=== PATIENT | female | born 2000 | race Two or more races ===

== ENCOUNTER 2019-09-19 18:43 | Emergency (ER) | payer OTHER ==
[2019-09-19 19:17] LABS: Influenza B Molecular POSITIVE (Negative)
[2019-09-19] MEDS ORDERED: Oseltamivir CAP* 75 MG CAP PO ONE (21:52)
[2019-09-19] MEDS ORDERED: Benzonatate CAP* 100 MG PO ONE (21:52)
[2019-09-19 21:54] VITALS: BP 120/76
--- NOTE | 2019-09-19 21:54 | ED ---
Influenza-Like Illness - HPI Summary HPI Summary: Patient complains of fever to 104, dry cough, body aches, runny nose 3 days. Denies FERRARO, sore throat, ear pain, neck stiffness, CP, SOB, N/3/D, abdominal pain , change in urine, change in BM. Medical history is asthma. - History of Current Complaint Chief Complaint: EDFluSymptoms Time Seen by Provider: 09/19/19 21:46 Hx Obtained From: Patient Onset/Duration: Gradual Onset, Lasting Days Severity: Moderate Associated Signs & Symptoms: Fever, Myalgia, Cough, Nasal Congestion - Allergy/Home Medications Allergies/Adverse Reactions: Allergies Allergy/AdvReac Type Severity Reaction Status Date / Time No Known Allergies Allergy Verified 09/19/19 21:59 PMH/Surg Hx/FS Hx/Imm Hx Endocrine/Hematology History: Denies: Hx Anticoagulant Therapy Cardiovascular History: Denies: Hx Pacemaker/ICD History: Denies: Hx Dialysis Sensory History: Denies: Hx Eye Prosthesis Opthamlomology History: Denies: Hx Legally Blind EENT History: Denies: Hx Deafness Neurological History: Denies: Hx Dementia Infectious Disease History: No Infectious Disease History: Denies: Traveled Outside the [place] in Last 30 Days - Family History Known Family History: Positive: Non-Contributory - Social History Alcohol Use: Occasionally Hx Substance Use: No Hx Tobacco Use: No Review of Systems Positive: Fever Eyes: Negative Positive: Nasal Discharge Cardiovascular: Negative Positive: Cough Gastrointestinal: Negative Genitourinary: Negative Positive: Myalgia Skin: Negative Neurological: Negative Psychological: Normal All Other Systems Reviewed And Are Negative: Yes Physical Exam Triage Information Reviewed: Yes Vital Signs On Initial Exam: Initial Vitals Temp Pulse Resp BP Pulse Ox 97.0 F 137 19 126/107 100 09/19/19 18:46 09/19/19 18:46 09/19/19 18:46 09/19/19 18:46 09/19/19 18:46 Vital Signs Reviewed: Yes Appearance: Positive: Well-Appearing Skin: Positive: Warm Head/Face: Positive: Normal Head/Face Inspection Eyes: Positive: Normal ENT: Positive: Pharyngeal erythema, TMs normal, Uvula midline. Negative: Tonsillar swelling, Tonsillar exudate, Trismus, Muffled voice, Hoarse voice Neck: Positive: Supple Respiratory/Lung Sounds: Positive: Clear to Auscultation Cardiovascular: Positive: Normal Abdomen Description: Positive: Nontender Musculoskeletal: Positive: Normal Neurological: Positive: Normal Psychiatric: Positive: Normal AVPU Assessment: Alert - Ponder Coma Scale Best Eye Response: 4 - Spontaneous Best Motor Response: 6 - Obeys Commands Best Verbal Response: 5 - Oriented Coma Scale Total: 15 Procedures - Sedation Patient Received Moderate/Deep Sedation with Procedure: No Diagnostics - Vital Signs Vital Signs Temp Pulse Resp BP Pulse Ox 09/19/19 21:34 98.9 F 115 18 120/84 100 09/19/19 18:46 97.0 F 137 19 126/107 100 - Laboratory Lab Results: Lab Results 09/19/19 Range/Units 18:51 Influenza A (Rapid) Not Reportable Influenza B (Rapid) Positive A (Negative) Lab Statement: Any lab studies that have been ordered have been reviewed, and results considered in the medical decision making process. Flu Symptom Course/Dx - Course Course Of Treatment: Patient complains of fever to 104, dry cough, body aches, runny nose 3 days. Denies FERRARO, sore throat, ear pain, neck stiffness, CP, SOB, N/3/D, abdominal pain, change in urine, change in BM. Medical history is asthma. Mildly tachycardic. Vital signs otherwise within normal limits. Tested positive for flu B. - Diagnoses Provider Diagnoses: Flu Discharge ED - Sign-Out/Discharge Documenting (check all that apply): Patient Departure - Discharge Plan Condition: Stable Disposition: HOME Prescriptions: Benzonatate CAP* [Tessalon 100 MG CAP*] 200 mg PO TID 6 Days #40 cap Oseltamivir CAP* [Tamiflu CAP*] 75 mg PO BID 5 Days #10 cap Patient Education Materials: Influenza (ED) Forms: *School Release Referrals: [facility] [Primary Care Provider] - Additional Instructions: Alternate ibuprofen 600 mg with Tylenol 650 mg every 3 hours as needed for body aches and fever control. Take Tessalon as directed for cough. Take Tamiflu as directed for flu symptoms. Take prednisone as directed for asthma control while sick with flu. Follow-up with primary care. Return to the ED for any new or worsening symptoms. - Billing Disposition and Condition Condition: STABLE Disposition: Home
[2019-09-19] MEDS ORDERED: Ibuprofen TAB* 600 MG PO ONE (21:57)
== END 2019-09-19 22:12 | disposition home or self-care (01) ==
LOC: ED 18:43
DX: J10.1 Influenza due to other identified influenza virus with other respiratory manifestations (principal); R00.0 Tachycardia, unspecified
CPT/HCPCS: 99282; A9270-GY